=== PATIENT | female | born 1995 | race American Indian/Alaskan Native ===

== ENCOUNTER 2021-07-01 14:58 | Emergency (ER) | payer SELFPAY ==
[2021-07-01] MEDS ORDERED: oxyCODONE /ACETAMINOPHEN 5-325MG TAB PO ONE (17:17)
[2021-07-01] MEDS ORDERED: IBUPROFEN 800 MG TAB PO STA (17:17)
[2021-07-01] MEDS ORDERED: LIDOCAINE (1%) 10 MG/1 ML VIAL 20 ML MDV INFILTRATI ONE (17:17)
--- NOTE | 2021-07-01 17:21 | Emergency Department Report ---
ED General Adult HPI - General Chief complaint: Extremity Problem,Nontraumatic Stated complaint: FINGER INJURY Time Seen by Provider: 07/01/21 17:08 Source: patient Mode of arrival: Ambulatory Limitations: No Limitations - History of Present Illness Initial comments: 26-year-old -[place] female patient presents with complaints of right thumb pain and swelling x2 weeks worsening over the past few days. Pain started after wearing acrylic nails per patient. She denies any fever/chills/sweats. She states there is difficulty moving the thumb due to pain and swelling. No loss of sensation per patient. She also denies any known drug allergies or past medical history. Patient rates her current pain as 8/10 in severity Severity scale (0 -10): 6 - Related Data Previous Rx's Medication Instructions Recorded Last Taken Type Ibuprofen [Motrin 800 MG tab] 800 mg PO Q8HR PRN #20 tablet 07/01/21 Unknown Rx Mupirocin [Bactroban 2% OINT] 1 applic TP TID 10 Days #1 tube 07/01/21 Unknown Rx Sulfamethoxazole/Trimethoprim 1 each PO BID 10 Days #20 tab 07/01/21 Unknown Rx [Bactrim DS TAB] traMADoL [Ultram 50 MG tab] 50 mg PO Q8HR PRN #6 tablet 07/01/21 Unknown Rx Allergies Allergy/AdvReac Type Severity Reaction Status Date / Time tree nut AdvReac Swelling Verified 07/01/21 15:16 ED Review of Systems ROS: Stated complaint: FINGER INJURY Other details as noted in HPI Constitutional: denies: chills, fever, malaise Musculoskeletal: joint swelling. denies: arthralgia Skin: change in color ED Past Medical Hx - Medications Home Medications: Home Medications Medication Instructions Recorded Confirmed Last Taken Type Ibuprofen [Motrin 800 MG tab] 800 mg PO Q8HR PRN #20 tablet 07/01/21 Unknown Rx Mupirocin [Bactroban 2% OINT] 1 applic TP TID 10 Days #1 tube 07/01/21 Unknown Rx Sulfamethoxazole/Trimethoprim 1 each PO BID 10 Days #20 tab 07/01/21 Unknown Rx [Bactrim DS TAB] traMADoL [Ultram 50 MG tab] 50 mg PO Q8HR PRN #6 tablet 07/01/21 Unknown Rx ED Physical Exam - General Limitations: No Limitations General appearance: alert, in no apparent distress - Head Head exam: Present: atraumatic, normocephalic - Eye Eye exam: Present: normal appearance. Absent: scleral icterus - Neurological Exam Neurological exam: Present: alert, oriented X3 - Psychiatric Psychiatric exam: Present: normal affect, normal mood - Skin Skin exam: Present: warm, dry, intact, other (Swelling and tenderness noted to right lateral thumb consistent with paronychia). Absent: rash ED Course Vital Signs 07/01/21 15:15 Temperature 98 F Pulse Rate 78 Respiratory 20 Rate Blood Pressure 105/65 [Left] O2 Sat by Pulse 100 Oximetry - I & D Finger Site: r thumb Blade Size: 11 I & D Procedure: betadine prep, sterile drapes applied, sterile dressing applied Progress: 1 cc of lidocaine 1% used anesthetize area. Minimal bleeding occurred. Mild purulent drainage obtained from incision. Patient tolerated procedure well without any immediate complication. ED Medical Decision Making - Medical Decision Making 26-year-old -[place] female patient presents with complaints of right thumb pain and swelling x2 weeks worsening over the past few days. Pain started after wearing acrylic nails per patient. She denies any fever/chills/sweats. She states there is difficulty moving the thumb due to pain and swelling. No loss of sensation per patient. She also denies any known drug allergies or past medical history. Patient rates her current pain as 8/10 in severity Incision and drainage performed. Patient tolerated procedure well without any immediate complications. She is well-appearing and stable for discharge home. Antibiotics given for home. Discussed wound care and signs and symptoms that should prompt immediate return to the ED with patient who verbalized understanding Critical care attestation.: If time is entered above; I have spent that time in minutes in the direct care of this critically ill patient, excluding procedure time. ED Disposition Clinical Impression: Paronychia Disposition: HOME / SELF CARE / HOMELESS Is pt being admited?: No Condition: Stable Instructions: Paronychia, [id number], Incision and Drainage, Care After Prescriptions: Sulfamethoxazole/Trimethoprim [Bactrim DS TAB] 1 each PO BID 10 Days #20 tab Mupirocin [Bactroban 2% OINT] 1 applic TP TID 10 Days #1 tube Ibuprofen [Motrin 800 MG tab] 800 mg PO Q8HR PRN #20 tablet PRN Reason: pain traMADoL [Ultram 50 MG tab] 50 mg PO Q8HR PRN #6 tablet PRN Reason: Pain , Severe (7-10) Referrals: [facility] [Provider Group] - 3-5 Days Forms: Work/School Release Form(ED)
[2021-07-01 19:26] VITALS: BP 115/73
== END 2021-07-01 19:24 | disposition home or self-care (01) ==
LOC: ED 14:58
DX: L03.011 Cellulitis of right finger (principal); Z91.018 Allergy to other foods
CPT/HCPCS: 10060; 99282; J3490